=== PATIENT | male | born 1985 | race Caucasian/White ===

== ENCOUNTER 2018-01-07 16:23 | Emergency (ER) | payer SELFPAY ==
[~2018-01-07] VITALS: Ht 170.2 cm; Wt 68.2 kg
[2018-01-07] MEDS: ACETAMINOPHEN 500 MG TABLET PO ONE (18:00)
[2018-01-07] MEDS: AQUAPHOR OINTMENT 50 GM TUBE TP ONE (18:00)
[2018-01-07 18:31] VITALS: BP 125/68
== END 2018-01-07 18:32 | disposition home or self-care (01) ==
LOC: EMS 16:24
DX: L55.9 Sunburn, unspecified (principal); F17.210 Nicotine dependence, cigarettes, uncomplicated; Z59.0 Homelessness; Z71.6 Tobacco abuse counseling
CPT/HCPCS: 99283; 99406

== ENCOUNTER 2019-02-23 18:39 | Emergency (ER) | payer MEDICAID ==
[~2019-02-23] VITALS: Ht 170.2 cm; Wt 72.7 kg
[2019-02-23 19:28] VITALS: BP 151/76
== END 2019-02-23 20:15 | disposition home or self-care (01) ==
LOC: EMS 18:40
DX: R76.11 Nonspecific reaction to tuberculin skin test without active tuberculosis (principal); F17.210 Nicotine dependence, cigarettes, uncomplicated
CPT/HCPCS: 99406

== ENCOUNTER 2019-02-28 23:03 | Emergency (ER) | payer MEDICAID ==
[~2019-02-28] VITALS: Ht 170.2 cm; Wt 81.8 kg
[2019-03-01 02:46] VITALS: BP 135/75
== END 2019-03-01 03:00 | disposition home or self-care (01) ==
LOC: EMS 23:05
DX: H11.32 Conjunctival hemorrhage, left eye (principal); F17.210 Nicotine dependence, cigarettes, uncomplicated

== ENCOUNTER 2020-08-15 15:42 | Emergency (ER) | payer MEDICAID, OTHER ==
[~2020-08-15] VITALS: Ht 170.2 cm; Wt 70.5 kg
[2020-08-15 15:46] VITALS: BP 148/93
[2020-08-15] MEDS ORDERED: BACITRACIN 0.9 GM PACKET OINTMENT TP ONE (16:45)
== END 2020-08-15 17:32 | disposition home or self-care (01) ==
LOC: EMS 15:42
DX: D04.30 Carcinoma in situ of skin of unspecified part of face (principal); F17.210 Nicotine dependence, cigarettes, uncomplicated
CPT/HCPCS: 99281; Z7502

== ENCOUNTER 2020-09-04 02:28 | Emergency (ER) | payer OTHER ==
[~2020-09-04] VITALS: Ht 170.2 cm; Wt 70.9 kg
[2020-09-04 02:32] VITALS: BP 111/100
== END 2020-09-04 03:12 | disposition left against medical advice (07) ==
LOC: EMS 02:30
DX: L73.1 Pseudofolliculitis barbae (principal); Z53.21 Procedure and treatment not carried out due to patient leaving prior to being seen by health care provider

== ENCOUNTER 2020-12-31 15:00 | Emergency (ER) | payer OTHER ==
[~2020-12-31] VITALS: Ht 167.6 cm; Wt 63.6 kg
[2020-12-31 17:15] VITALS: BP 125/84
== END 2020-12-31 17:34 | disposition home or self-care (01) ==
LOC: EMS 15:09
DX: R23.8 Other skin changes (principal); F17.210 Nicotine dependence, cigarettes, uncomplicated; F12.90 Cannabis use, unspecified, uncomplicated
CPT/HCPCS: 99281; Z7502